=== PATIENT | male | born 1975 | race Caucasian/White ===

== ENCOUNTER 2023-04-30 08:48 | Emergency (ER) | payer SELFPAY ==
[~2023-04-30] VITALS: Ht 172.7 cm; Wt 86.6 kg
[2023-04-30 08:55] VITALS: O2SAT 100
[2023-04-30] MEDS ORDERED: KETOROLAC 60MG/2ML VIAL IM ONE (09:30)
[2023-04-30] MEDS ORDERED: ACET-2708 MT (12:29)
[2023-04-30] MEDS ORDERED: IBUP-2028 MT (12:29)
[2023-04-30 13:06] VITALS: BP 129/78; PULSE 89; RESP 16; TEMP 100.5
== END 2023-04-30 13:07 | disposition home or self-care (01) ==
LOC: ER 09:27
DX: R50.9 Fever, unspecified (principal); R07.0 Pain in throat; Z91.013 Allergy to seafood
CPT/HCPCS: 99284; 71045; 87430; 87070; 96372; J1885